=== PATIENT | female | born 1995 | race American Indian/Alaskan Native ===

== ENCOUNTER 2019-11-30 08:23 | Emergency (ER) | payer SELFPAY ==
[2019-11-30 08:30] VITALS: BP 113/36
[2019-11-30 10:13] LABS: HCG Qualitative,Urine Negative (Negative)
--- NOTE | 2019-11-30 10:19 | Emergency Department Report ---
ED Female HPI - General Chief complaint: Urogenital-Female Stated complaint: STD EXPOSURE/VAGINAL IRRITATION Time Seen by Provider: 11/30/19 09:39 Source: patient Mode of arrival: Ambulatory Limitations: No Limitations - History of Present Illness Initial comments: Physical pleasant 24-year-old female presents the emergency department with a chief complaint of dysuria, urinary frequency and urgency. She also reports associated suprapubic abdominal pain and vaginal discharge. She states she has had one sexual partner is concerned about exposure to sexually transmitted disease. She denies any known past medical history, current medication use or known allergies to medications. Immunizations are up-to-date. - Related Data Previous Rx's Medication Instructions Recorded Last Taken Type Fluconazole [Diflucan TAB] 150 mg PO ONCE #1 tablet 11/30/19 Unknown Rx Allergies Allergy/AdvReac Type Severity Reaction Status Date / Time No Known Allergies Allergy Verified 11/30/19 08:36 ED Review of Systems ROS: Stated complaint: STD EXPOSURE/VAGINAL IRRITATION Other details as noted in HPI Comment: All other systems reviewed and negative Constitutional: denies: chills, fever Eyes: denies: eye pain, eye discharge, vision change ENT: denies: ear pain, throat pain Respiratory: denies: cough, shortness of breath, wheezing Cardiovascular: denies: chest pain, palpitations Endocrine: no symptoms reported Gastrointestinal: denies: abdominal pain, nausea, diarrhea Genitourinary: as per HPI, urgency, dysuria, frequency, discharge Musculoskeletal: denies: back pain, joint swelling, arthralgia Skin: denies: rash, lesions Neurological: denies: headache, weakness, paresthesias Psychiatric: denies: anxiety, depression Hematological/Lymphatic: denies: easy bleeding, easy bruising ED Past Medical Hx - Past Medical History Previous Medical History?: No - Surgical History Past Surgical History?: No - Social History Smoking Status: Never Smoker Substance Use Type: Marijuana - Medications Home Medications: Home Medications Medication Instructions Recorded Confirmed Last Taken Type Fluconazole [Diflucan TAB] 150 mg PO ONCE #1 tablet 11/30/19 Unknown Rx ED Physical Exam - General Limitations: No Limitations General appearance: alert, in no apparent distress - Head Head exam: Present: atraumatic, normocephalic - Eye Eye exam: Present: normal appearance, PERRL, EOMI Pupils: Present: normal accommodation - ENT ENT exam: Present: normal exam, normal orophraynx, mucous membranes moist - Neck Neck exam: Present: normal inspection, full ROM. Absent: tenderness, meningismus - Respiratory Respiratory exam: Present: normal lung sounds bilaterally. Absent: respiratory distress, wheezes, rales, rhonchi, stridor - Cardiovascular Cardiovascular Exam: Present: regular rate, normal rhythm, normal heart sounds. Absent: systolic murmur, diastolic murmur, rubs, gallop - GI/Abdominal GI/Abdominal exam: Present: soft, tenderness (mild suprapubic abdominal tenderness, negative McBurney's point tenderness, negative Art sign), normal bowel sounds. Absent: distended, guarding, rebound, rigid - External exam: Present: normal external exam, other (chaperoned by EMELI Campuzano ). Absent: erythema, swelling Speculum exam: Present: normal speculum exam. Absent: cervical discharge, vaginal bleeding, tissue, laceration Bi-manual exam: Present: normal bi-manual exam. Absent: cervical motion tendernes, adnexal tenderness - Extremities Exam Extremities exam: Present: normal inspection, full ROM. Absent: tenderness - Back Exam Back exam: Present: normal inspection, full ROM. Absent: tenderness, CVA tenderness (R), CVA tenderness (L) - Neurological Exam Neurological exam: Present: alert, oriented X3 - Psychiatric Psychiatric exam: Present: normal affect, normal mood - Skin Skin exam: Present: warm, dry, intact, normal color. Absent: rash ED Course Vital Signs 11/30/19 08:29 Temperature 98.0 F Pulse Rate 68 Respiratory 16 Rate Blood Pressure 113/36 O2 Sat by Pulse 99 Oximetry ED Medical Decision Making - Lab Data Lab Results 11/30/19 Range/Units 09:32 Urine Color Yellow (Yellow) Urine Turbidity Hazy (Clear) Urine pH 5.0 (5.0-7.0) Ur Specific [place] 1.021 (1.003-1.030) Urine Protein <15 mg/dl (Negative) mg/dL Urine Glucose (UA) Neg (Negative) mg/dL Urine Ketones Tr (Negative) mg/dL Urine Blood Neg (Negative) Urine Nitrite Neg (Negative) Ur Reducing Substances Not Reportable Urine Bilirubin Neg (Negative) Urine Ictotest Not Reportable Urine Urobilinogen < 2.0 (<2.0) mg/dL Ur Leukocyte Esterase Neg (Negative) Urine WBC (Auto) 1.0 (0.0-6.0) /HPF Urine RBC (Auto) 2.0 (0.0-6.0) /HPF U Epithel Cells (Auto) 5.0 (0-13.0) /HPF Urine Mucus Few /HPF Urine HCG, Qual Negative (Negative) Microbiology 11/30/19 11:51 Wet Prep - Final Cervix - Medical Decision Making Patient's urine returned unremarkable. test was negative. Ruling out ectopic and urinary tract infection, pyelonephritis or nephrolithiasis likely. Patient's blood prep was negative for trichomoniasis, yeast or pectoral vaginosis. The gonorrhea and chlamydia is pending and the patient will be treated empirically. Will send home with [facility] for what I suspect is a yeast infection. She was given outpatient follow-up with [facility] and the health department. She is educated that any other partners would need to be treated prior to engaging in intercourse again to avoid reinfection. She also continue to follow up with [facility] telephone STD workup including HIV hepatitis syphilis or any other possible exposures. She understood these instructions. She is educated about safe sex including condoms and avoidance of unprotected intercourse to avoid any possible exposures. She was understanding of the diagnosis, treatment plan and follow-up instructions all her questions were answered. - Differential Diagnosis UTI, STD, PID Critical care attestation.: If time is entered above; I have spent that time in minutes in the direct care of this critically ill patient, excluding procedure time. ED Disposition Clinical Impression: Vaginitis Qualifiers: Chronicity: acute Qualified Code(s): N76.0 - Acute vaginitis Disposition: TO HOME OR SELFCARE Is pt being admited?: No Condition: Stable Instructions: Vaginitis (ED) Prescriptions: Fluconazole [Diflucan TAB] 150 mg PO ONCE #1 tablet Referrals: PRIMARY CARE, [Primary Care Provider] - 3-5 Days MARIAMA WILKERSON MD [Staff Physician] - 3-5 Days Time of Disposition: 12:39
[2019-11-30 12:06] LABS: Bilirubin,Urine NEG (Negative); Blood,Urine NEG (Negative); Color,Urine Yellow (Yellow); Mucus,Urine FEW /HPF; Protein,Urine <15 mg/dL mg/dL (Negative); Urobilinogen,Urine < 2.0 mg/dL (<2.0)
[2019-11-30] MEDS ORDERED: AZITHROMYCIN 250 MG TAB PO ONE (12:37)
[2019-11-30] MEDS ORDERED: LIDOCAINE-MPF (1%) 10 MG/1 ML VIAL 5 ML INFILTRATI ONE (12:37)
== END 2019-11-30 13:05 | disposition home or self-care (01) ==
LOC: ED 08:23
DX: N76.0 Acute vaginitis (principal); F12.10 Cannabis abuse, uncomplicated; Z79.899 Other long term (current) drug therapy
CPT/HCPCS: 81001; 81025; 87210; 87591; 96372; 99283; J0696

== ENCOUNTER 2020-08-20 23:00 | Emergency (ER) | payer SELFPAY ==
--- NOTE | 2020-08-21 01:15 | Emergency Department Report ---
ED Psych HPI - General Chief Complaint: Psych Stated Complaint: SUICIDAL IDEATIONS Time Seen by Provider: 08/21/20 00:55 Source: patient Mode of arrival: Ambulatory - History of Present Illness Initial Comments: Patient is 25 years old female with history of bipolar disorder. Patient brought to the emergency room by her boyfriend stating that she is having dangerous thoughts about killing herself and other people. Patient stated that every time somebody said something back to her she will have the desire to grab a knife and slit his or her neck open. Patient also stated that she is hearing voices asking her to hurt herself. Patient denied any visual hallucination. MD Complaint: suicidal ideation, altered mental status Associated Psychiatric Symptoms: suicidal ideation, homicidal ideation, racing thoughts, auditory hallucinations History of same: Yes Quality: constant Associated Symptoms: denies other symptoms If Self Harm: admits thoughts of, has plan - Related Data Home Medications Medication Instructions Recorded Confirmed Last Taken No Known Home Medications [No 08/21/20 08/21/20 Unknown Reported Home Medications] Allergies Allergy/AdvReac Type Severity Reaction Status Date / Time No Known Allergies Allergy Verified 11/30/19 08:36 ED Review of Systems ROS: Stated complaint: SUICIDAL IDEATIONS Other details as noted in HPI Comment: All other systems reviewed and negative Constitutional: denies: chills, fever Respiratory: denies: cough, shortness of breath, SOB with exertion Cardiovascular: denies: chest pain, palpitations Gastrointestinal: denies: abdominal pain, nausea, vomiting, diarrhea, constipation, hematemesis, melena, hematochezia Musculoskeletal: denies: back pain Neurological: denies: headache, weakness, numbness, paresthesias, confusion ED Past Medical Hx - Past Medical History Previous Medical History?: Yes Hx Psychiatric Treatment: Yes (Bipolar) - Surgical History Past Surgical History?: No - Social History Smoking Status: Former Smoker Substance Use Type: Alcohol, Marijuana - Medications Home Medications: Home Medications Medication Instructions Recorded Confirmed Last Taken Type No Known Home Medications [No 08/21/20 08/21/20 Unknown History Reported Home Medications] ED Physical Exam - General Limitations: No Limitations General appearance: alert, in no apparent distress - Head Head exam: Present: atraumatic, normocephalic, normal inspection - Eye Eye exam: Present: normal appearance, PERRL - ENT ENT exam: Present: normal exam, normal orophraynx, mucous membranes moist - Neck Neck exam: Present: normal inspection, full ROM. Absent: tenderness, meningismus - Respiratory Respiratory exam: Present: normal lung sounds bilaterally - Cardiovascular Cardiovascular Exam: Present: regular rate, normal rhythm, normal heart sounds - GI/Abdominal GI/Abdominal exam: Present: soft, normal bowel sounds. Absent: distended, tenderness, guarding, rebound, rigid, organomegaly, mass, bruit, pulsatile mass, hernia - Extremities Exam Extremities exam: Present: normal inspection, full ROM, normal capillary refill. Absent: pedal edema, calf tenderness - Back Exam Back exam: Present: normal inspection, full ROM. Absent: CVA tenderness (R), CVA tenderness (L) - Neurological Exam Neurological exam: Present: alert, oriented X3, CN II-XII intact - Psychiatric Psychiatric exam: Present: depressed, anxious, homicidal ideation, suicidal ideation - Skin Skin exam: Present: warm, intact, normal color ED Course Vital Signs 08/21/20 08/21/20 08/21/20 00:39 02:00 08:38 Temperature 99.5 F 99.2 F 98.5 F Pulse Rate 65 74 68 Respiratory 16 16 20 Rate Blood Pressure 112/75 Blood Pressure 116/64 101/71 [Left] O2 Sat by Pulse 100 100 100 Oximetry 08/21/20 08/21/20 13:38 19:53 Temperature 98.5 F Pulse Rate 95 H Respiratory 20 16 Rate Blood Pressure 112/70 Blood Pressure [Left] O2 Sat by Pulse 100 99 Oximetry ED Medical Decision Making - Lab Data Result diagrams: 08/21/20 01:10 08/21/20 01:10 Critical care attestation.: If time is entered above; I have spent that time in minutes in the direct care of this critically ill patient, excluding procedure time. ED Disposition Clinical Impression: Suicidal ideation, Homicidal ideation Condition: Stable Referrals: PRIMARY CARE, [Primary Care Provider] - 3-5 Days
[2020-08-21 02:02] LABS: Basophils % (Auto) 0.9 % (0.0-1.8); Eosinophils # (Auto) 0.1 K/mm3 (0.0-0.4); Eosinophils % (Auto) 0.9 % (0.0-4.3); Hematocrit 37.5 % (30.3-42.9); Hemoglobin 12.6 gm/dl (10.1-14.3); Lymphocytes # (Auto) 2.8 K/mm3 (1.2-5.4); Lymphocytes % (Auto) 48.3 % (13.4-35.0); Mean Corpuscular HGB Conc 34 % (30-34); Mean Corpuscular Volume 87 fl (79-97); Monocytes # (Auto) 0.7 K/mm3 (0.0-0.8); Monocytes % (Auto) 12.9 % (0.0-7.3); Platelet Count 349 K/mm3 (140-440); Red Blood Count 4.31 M/mm3 (3.65-5.03); Red Cell Distribution Width 14.1 % (13.2-15.2)
[2020-08-21 02:06] LABS: Bilirubin,Urine NEG (Negative); Blood,Urine NEG (Negative); Color,Urine Yellow (Yellow); Protein,Urine <15 mg/dL mg/dL (Negative); Urobilinogen,Urine < 2.0 mg/dL (<2.0)
[2020-08-21 02:09] LABS: HCG Qualitative,Urine Negative (Negative)
[2020-08-21 02:14] LABS: Amphetamine Screen,Urine PRESUMPTIVE NEGATIVE; Benzodiazepines Screen,Urine PRESUMPTIVE NEGATIVE; Cannabinoid Screen,Urine PRESUMPTIVE NEGATIVE; Cocaine Screen,Urine PRESUMPTIVE NEGATIVE; Methadone Screen,Urine PRESUMPTIVE NEGATIVE; Opiate Screen,Urine PRESUMPTIVE NEGATIVE
[2020-08-21 02:19] LABS: BUN/Creatinine Ratio 13; Blood Urea Nitrogen 12 mg/dL (7-17); Hemolysis Index 14
--- NOTE | 2020-08-22 10:26 | Consultation ---
History of Present Illness - Reason for Consult Consult date: 08/22/20 Reason for consult: SI/HI - History of Present Psychiatric Illness Linnea Armas is a 25y/o female who was brought to the ER by her boyfriend for having thoughts of stabbing herself and others. During my interview with the patient she is lying down in bed. She easily arouses. She is not forthcoming. She initially denies hearing voices, and states she only came here "to get a break." When asking the patient about her symptoms and feelings yesterday, she says "yea, I was having some disturbing thoughts. 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 When asked about h allucinations, the patient pauses then initially denies. She then says "maybe a little." PAST PSYCHIATRIC HISTORY Diagnoses: Bipolar Suicide attempts or Self-harm behavior: Denies Prior psychiatric hospitalizations: Yes Substance Abuse history: Denies Previous psychiatric medications tried: [place] and abilify Outpatient treatment: Denies PAST MEDICAL HISTORY: None reported Family Psychiatric History: None reported or documented SOCIAL HISTORY Marital Status: Single Living Arrangements: "with managers" Employment Status: Employed Access to guns/weapons: Denies Education: Some college History of Abuse: Denies Legal History: Denies [employer] Constitutional: Negative for weight loss ENT: Negative for stridor Respiratory: Negative for cough or hemoptysis All other systems reviewed and are negative MENTAL STATUS EXAMINATION General Appearance and Behavior: Age appropriate, wearing appropriate clothes, staring, calm and cooperative Mood: "detached" Affect and affective range: congruent with mood Thought Process: responding to internal stimuli Thought Content: Hallucinations Speech: Normal volume, Regular rate and rhythm Suicidal Ideation: Yes Homicidal Ideation: Yes Hallucinations: Yes Delusions: None elicited Impulse Control: normal Insight and Judgment: Limited Memory/Cognition: Normal Attention: Normal Orientation: Alert, oriented Assessment Schizoaffective Disorder Plan Start Seroquel 25mg po BID Start Depakote DR 125mg po BID Start Trazodone 50mg po qhs Sitter: Defer to primary Medical: Per primary Disposition: Recommend acute inpatient treatment Will follow. Thank you for this consult. Medications and Allergies Allergies Allergy/AdvReac Type Severity Reaction Status Date / Time No Known Allergies Allergy Verified 11/30/19 08:36 Home Medications Medication Instructions Recorded Confirmed Last Taken Type No Known Home Medications [No 08/21/20 08/21/20 Unknown History Reported Home Medications] Mental Status Exam - Vital signs Last Vital Signs Temp 99.3 F 08/22/20 02:25 Pulse 74 08/22/20 02:25 Resp 16 08/22/20 02:25 BP 113/58 08/22/20 02:25 Pulse Ox 100 08/22/20 02:25 Results Result Diagrams: 08/21/20 01:10 08/21/20 01:10 All other labs normal.
[2020-08-22] MEDS: DIVALPROEX DR 125 MG TAB PO SCH ×2 (12:59→21:43)
[2020-08-22] MEDS: QUEtiapine 25 MG TAB PO SCH ×2 (12:59→21:42)
[2020-08-22] MEDS ORDERED: traZODone 50 MG TAB PO SCH (22:00)
[2020-08-23] MEDS: QUEtiapine 25 MG TAB PO SCH (10:39)
[2020-08-23] MEDS: DIVALPROEX DR 125 MG TAB PO SCH (10:39)
[2020-08-23 13:55] VITALS: BP 112/54
== END 2020-08-23 12:30 ==
LOC: EEVIPCON 23:00 → ED 23:00
DX: R45.851 Suicidal ideations (principal); F25.8 Other schizoaffective disorders
CPT/HCPCS: 36415; 80048; 80307; 80320; 81001; 81025; 84703; 85025; G0480